=== PATIENT | male | born 1975 | race Caucasian/White ===

== ENCOUNTER 2023-12-05 06:21 | Outpatient (CLI) | payer OTHER | END 2023-12-05 23:59 | disposition home or self-care (01) | LOC: MRI02 06:21 | PROVIDERS: ATTEND Registered Nurse | DX: S82.831A Other fracture of upper and lower end of right fibula, initial encounter for closed fracture (principal); M25.571 Pain in right ankle and joints of right foot; M79.604 Pain in right leg; X58.XXXA Exposure to other specified factors, initial encounter; Y93.89 Activity, other specified; Y92.89 Other specified places as the place of occurrence of the external cause; Y99.8 Other external cause status | CPT/HCPCS: 73721 ==

== ENCOUNTER 2024-04-13 14:40 | Emergency (ER) | payer MEDICAID, OTHER ==
[~2024-04-13] VITALS: Ht 182.9 cm; Wt 111.4 kg
[2024-04-13] MEDS: ketorolac trometh 15mg/ml vial 15 MG/ML ML IM ONE (16:45)
[2024-04-13] MEDS: ketorolac trometh 30MG/ML vial 30 MG/ML VIAL IM ONE (16:45)
[2024-04-13] MEDS: ondansetron 4mg rapidly disintigrating tab PO ONE (16:45)
[2024-04-13] MEDS ORDERED: IBUP-1984 PO (17:18)
[2024-04-13] MEDS ORDERED: ALBU18HF2 INH (17:18)
[2024-04-13] MEDS ORDERED: TAM75C PO (17:18)
[2024-04-13] MEDS ORDERED: GUAI120L55 PO (17:18)
[2024-04-13] MEDS: oseltamivir phos 75mg capsule PO ONE (17:32)
[2024-04-13] MEDS: acetaminophen 325mg tablet PO ONE (17:32)
[2024-04-13 17:36] VITALS: BP 133/87; PULSE 95; RESP 20; TEMP 99.2; O2SAT 98
== END 2024-04-13 17:37 | disposition home or self-care (01) ==
LOC: ER 14:41
DX: J11.1 Influenza due to unidentified influenza virus with other respiratory manifestations (principal)
CPT/HCPCS: 71045; 87502; 87503; 96372; 99284; J1885